=== PATIENT | male | born 1955 | race Caucasian/White ===

== ENCOUNTER 2017-09-10 11:35 | Inpatient (IN) | payer MEDICARE ==
[~2017-09-10] VITALS: Ht 185.4 cm; Wt 95.4 kg
[~2017-09-10 11:35] MED LIST: AMBIEN 10 MG TA10 MG; ASPIR 8181 MG PO; BACTRIM 400-801 EACH; BACTRIM 400-801 EACH PO; CARAFATE1 GM PO; CELEXA 20 MG TA20 M1; CELEXA20 MG PO; CIPRO500 MG PO; CIPROFLOXACIN500 M1; CIPROFLOXACIN500 M3 PO; CLONAZEPAM 1 MG1 M1 PO; CLONAZEPAM1 GM; DOXYCYCLINE 10100 M1; DOXYCYCLINE 10100 MG PO; FINASTERIDE5 MG PO; FLOMAX0.4 MG PO; HYDROCODONE-AP1 EAC6 PO; LEVSIN0.125 MG PO; LIPITOR 20 MG T20 M1 PO; LIPITOR20 MG; LISINOPRIL20 MG; LOPRESSOR25 PO; LOPRESSOR50 PO; LYRICA 50 MG50 MG PO; METOZOLV ODT5 MG; NEURONTIN 300300 M1; NORCO 5-325 TA1 EACH PO; OSCIMIN0.125 MG; PENTASA 250 MG250 MG PO; PENTASA500 MG PO; PERCOCET PO; PHENAZOPYRIDIN200 M2 PO; PYRIDIUM200 MG PO; RANITIDINE 150150 M1 PO; REMERON15 MG PO; STOOL SOFTENER240 MG PO; TAMSULOSIN HCL0.4 M1; TOPROL XL25 MG; ZANTAC 150MG T150 M1; ZANTAC 150MG T150 MG PO
[2017-09-10 11:51] VITALS: BP 168/90
[2017-09-10 12:13] LABS: URINE BILIRUBIN NEGATIVE (Negative); URINE BLOOD 3+ (Negative); URINE CLARITY CLEAR; URINE COLOR YELLOW; URINE GLUCOSE-RANDOM NEGATIVE (Negative); URINE KETONES NEGATIVE (Negative); URINE LEUKOCYTES-REFLEX NEGATIVE (Negative); URINE NITRITE-REFLEX NEGATIVE (Negative); URINE PROTEIN TRACE (Negative); URINE SPECIFIC GRAVITY 1.025 (1.005-1.030)
[2017-09-10 12:25] LABS: BACTERIA-REFLEX 1-9 Few /HPF (None Seen); CASTS None Seen /LPF (None Seen); CRYSTALS None Seen /LPF (None Seen); MUCUS None Seen strn/LPF (None Seen); SQUAMOUS 0-3 Few /LPF (0-3); URINE RBC >20 Many /HPF (0-2); URINE WBC-REFLEX 0-5 Rare /HPF (0-5)
[2017-09-10 12:50] LABS: ABSOLUTE BASOPHILS 0.1 thou/uL (0.0-0.2); ABSOLUTE EOSINOPHILS 0.3 thou/uL (0.0-0.7); ABSOLUTE LYMPHOCYTES 2.2 thou/uL (0.8-5.3); ABSOLUTE NEUTROPHILS 4.5 thou/uL (1.6-8.1); BASOPHILS 0.9 %; EOSINOPHILS 3.8 %; HEMATOCRIT 47.2 % (42.0-52.0); HEMOGLOBIN 16.1 gm/dL (14.0-18.0); LYMPHOCYTES 27.2 %; MCH 33.6 pg (26.0-34.0); MCHC 34.1 g/dL (28.0-37.0); MCV 98.6 fL (80.0-100.0); MONOCYTES 12.5 %; MPV 10.1 fl. (7.2-11.1); NUCLEATED RBCS 0 /100WBC; PLATELET COUNT* 190 thou/uL (150-400); POLYS 55.6 %; RBC 4.79 mil/uL (4.50-6.00); RDW-CV 12.5 % (10.5-14.5); WBC 8.1 thou/uL (4.0-11.0)
[2017-09-10 12:56] LABS: ANION GAP 6 mmol/L (7-16); BUN 13 mg/dL (7-18); CALCIUM 8.7 mg/dL (8.5-10.1); CHLORIDE 106 mmol/L (98-107); CO2 29 mmol/L (21-32); CREATININE 1.1 mg/dL (0.6-1.3); GLUCOSE 107 mg/dL (70-99); SODIUM 141 mmol/L (136-145)
[2017-09-10 13:11] LABS: ALBUMIN 3.9 g/dL (3.4-5.0); ALKALINE PHOSPHATASE 102 U/L (46-116); LIPASE 116 U/L (73-393); SGOT 27 U/L (15-37); SGPT 37 U/L (30-65); TOTAL BILIRUBIN 1.4 mg/dL (<0.1-1.0); TOTAL PROTEIN 6.9 g/dL (6.4-8.2); TROPONIN-I LEVEL <0.06 ng/mL (<0.06)
[2017-09-10 16:15] VITALS: BP 126/62
--- NOTE | 2017-09-10 16:16 | EKG ---
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
[2017-09-10 16:20] VITALS: BP 146/83
[2017-09-10 16:39] VITALS: BP 126/62
[2017-09-10 23:39] VITALS: BP 143/82
[2017-09-11 04:29] LABS: ABSOLUTE BASOPHILS 0.1 thou/uL (0.0-0.2); ABSOLUTE EOSINOPHILS 0.4 thou/uL (0.0-0.7); ABSOLUTE LYMPHOCYTES 4.3 thou/uL (0.8-5.3); ABSOLUTE MONOCYTES 1.5 thou/uL (0.0-1.2); ABSOLUTE NEUTROPHILS 3.1 thou/uL (1.6-8.1); BASOPHILS 0.9 %; HEMATOCRIT 46.7 % (42.0-52.0); HEMOGLOBIN 15.7 gm/dL (14.0-18.0); LYMPHOCYTES 45.9 %; MCH 32.8 pg (26.0-34.0); MCHC 33.5 g/dL (28.0-37.0); MONOCYTES 15.8 %; MPV 11.2 fl. (7.2-11.1); NUCLEATED RBCS 0 /100WBC; PLATELET COUNT* 183 thou/uL (150-400); POLYS 33.4 %; RBC 4.77 mil/uL (4.50-6.00); RDW-CV 12.6 % (10.5-14.5); WBC 9.4 thou/uL (4.0-11.0)
[2017-09-11 04:50] LABS: ALBUMIN 3.5 g/dL (3.4-5.0); CALCIUM 8.3 mg/dL (8.5-10.1); CREATININE 0.9 mg/dL (0.6-1.3); POTASSIUM 3.8 mmol/L (3.5-5.1); TOTAL BILIRUBIN 1.3 mg/dL (<0.1-1.0); TOTAL PROTEIN 6.3 g/dL (6.4-8.2)
[2017-09-11 06:48] LABS: URINE BILIRUBIN NEGATIVE (Negative); URINE BLOOD NEGATIVE (Negative); URINE CLARITY CLEAR; URINE COLOR YELLOW; URINE GLUCOSE-RANDOM NEGATIVE (Negative); URINE KETONES NEGATIVE (Negative); URINE LEUKOCYTES NEGATIVE (Negative); URINE NITRITE NEGATIVE (Negative); URINE PROTEIN NEGATIVE (Negative); URINE SPECIFIC GRAVITY 1.025 (1.005-1.030)
[2017-09-11 08:00] VITALS: BP 126/77
[2017-09-11 16:24] VITALS: BP 124/70
[2017-09-11 22:31] VITALS: BP 147/74
[2017-09-12 04:12] LABS: ABSOLUTE EOSINOPHILS 0.3 thou/uL (0.0-0.7); ABSOLUTE LYMPHOCYTES 1.6 thou/uL (0.8-5.3); ABSOLUTE MONOCYTES 0.9 thou/uL (0.0-1.2); BASOPHILS 0.3 %; EOSINOPHILS 3.3 %; HEMATOCRIT 47.1 % (42.0-52.0); HEMOGLOBIN 15.7 gm/dL (14.0-18.0); MCH 33.1 pg (26.0-34.0); MCHC 33.3 g/dL (28.0-37.0); MCV 99.5 fL (80.0-100.0); MONOCYTES 11.5 %; MPV 10.7 fl. (7.2-11.1); NUCLEATED RBCS 0 /100WBC; PLATELET COUNT* 166 thou/uL (150-400); POLYS 63.9 %; RBC 4.74 mil/uL (4.50-6.00); RDW-CV 12.8 % (10.5-14.5); WBC 7.8 thou/uL (4.0-11.0)
[2017-09-12 04:39] LABS: ALBUMIN 3.6 g/dL (3.4-5.0); CALCIUM 8.5 mg/dL (8.5-10.1); CREATININE 0.9 mg/dL (0.6-1.3); TOTAL BILIRUBIN 1.5 mg/dL (<0.1-1.0); TOTAL PROTEIN 6.1 g/dL (6.4-8.2)
[2017-09-12 08:00] VITALS: BP 172/84
[2017-09-12] MEDS ORDERED: FLOMAX0.4 MG PO (10:25)
[2017-09-12] MEDS ORDERED: ROXICODONE5 MG PO (10:26)
[2017-09-12 10:33] VITALS: BP 172/84
== END 2017-09-12 12:10 | disposition home or self-care (01) | DRG 694 ==
LOC: M.ERS 11:35 → M.TBA-ER 15:27 → M.3W 16:21
PROVIDERS: Emergency Medicine Emergency Medical Services; ADMIT Internal Medicine
DX: N13.2 Hydronephrosis with renal and ureteral calculous obstruction (principal); K50.90 Crohn's disease, unspecified, without complications; I10 Essential (primary) hypertension; F32.9 Major depressive disorder, single episode, unspecified; N40.0 Benign prostatic hyperplasia without lower urinary tract symptoms; K21.9 Gastro-esophageal reflux disease without esophagitis; K31.84 Gastroparesis; K57.90 Diverticulosis of intestine, part unspecified, without perforation or abscess without bleeding; Z90.89 Acquired absence of other organs; Z90.49 Acquired absence of other specified parts of digestive tract; Z90.81 Acquired absence of spleen; Z79.899 Other long term (current) drug therapy; Z87.891 Personal history of nicotine dependence; Z23 Encounter for immunization